=== PATIENT | male | born 1960 | race Caucasian/White ===

== ENCOUNTER 2016-07-14 10:53 | Emergency (ER) | END 2016-07-14 17:04 | disposition home or self-care (01) | DX: G40.909 Epilepsy, unspecified, not intractable, without status epilepticus (principal); I10 Essential (primary) hypertension; R40.2142 Coma scale, eyes open, spontaneous, at arrival to emergency department; R40.2252 Coma scale, best verbal response, oriented, at arrival to emergency department; R40.2362 Coma scale, best motor response, obeys commands, at arrival to emergency department; Z85.841 Personal history of malignant neoplasm of brain | CPT/HCPCS: 36415; 71010; 80053; 83690; 84484; 85025; 93005; 96374; 96375; J1953; J2405; J7030; Z7502; Z7610 ==

== ENCOUNTER 2016-07-30 10:28 | Inpatient (IN) | payer OTHER ==
[~2016-07-30] VITALS: Ht 162.6 cm; Wt 84.4 kg
[~2016-07-30 10:28] MED LIST: LEVE-5 PO
--- NOTE | 2016-07-30 10:39 | ERA ---
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 At 9:30 this morning he experienced acute onset of twisting of his lower lip, numbness of his right face and weakness of his left upper extremity. Symptoms lasted proximally 5 minutes and have resolved. He is back to baseline. Denies seizure. No headache or visual changes. No other focal weakness or numbness. No chest pain or palpitations. Denies shortness of breath or cough. No abdominal pain, nausea or vomiting. No fevers or chills. ROS All systems reviewed and are negative except as per history of present illness. Medications Home Meds Active Scripts Levetiracetam* (Keppra*) 500 Mg Tablet, 500 MG PO BID, #60 TAB Prov:ZEV MI MD 07/14/16 Reported Medications Simvastatin* (Zocor*) 20 Mg Tablet, 20 MG PO DAILY, #30 TAB 07/30/16 Lisinopril* (Lisinopril*) 10 Mg Tablet, 10 MG PO DAILY, #30 TAB 07/30/16 Allergies Allergies: Coded Allergies: Penicillins (Verified Allergy, Unknown, 07/30/16) Sulfa (Sulfonamide Antibiotics) (Verified Allergy, Unknown, 07/30/16) ampicillin (Verified Allergy, Unknown, 07/30/16) morphine (Verified Allergy, Unknown, 07/30/16) sulbactam (Verified Allergy, Unknown, 07/14/16) PMhx/Soc Reviewed in chart. As per HPI. History of Surgery: Yes (removal of brain tumor ) Anesthesia Reaction: No Hx Neurological Disorder: Yes (brain tumor, seizure) Hx Respiratory Disorders: No Hx Cardiac Disorders: Yes (htn, high cholesterol) Hx Psychiatric Problems: No Hx Miscellaneous Medical Probl: No Hx Alcohol Use: No Hx Substance Use: No Hx Tobacco Use: No Smoking Status: Former smoker (Quit 10 years ago) FmHx No stroke or cancer Physical Exam Vitals Vital Signs Date Time Temp Pulse Resp B/P Pulse Ox O2 Delivery O2 Flow Rate FiO2 07/30/16 13:47 60 18 132/84 98 Room Air 07/30/16 11:01 Nasal Cannula 2 07/30/16 10:38 98.1 97 18 127/79 98 Physical Exam Const: Alert and oriented. Moderate distress. Head: Atraumatic. Status post right temporal craniotomy Eyes: Normal Conjunctiva. Extraocular movements are intact. Pupils equal and reactive to light. ENT: Normal External Ears, Nose and Mouth. + gag reflex. Neck: Full range of motion carotids 2+ bilaterally without bruits. Nontender. Resp: Breath sounds are equal and Clear to auscultation bilaterally Cardio: Regular rate and rhythm, no murmurs Abd: Soft, non tender, non distended. Normal bowel sounds Skin: No petechiae or rashes Back: No midline or flank tenderness Ext: No cyanosis, or edema Neur: Awake and alert. Cranial nerves II through XII are grossly intact. Mild left upper extremity weakness but otherwise motor and sensory equal bilaterally. Psych: Normal Mood and Affect Result Diagram: 07/31/16 1005 07/31/16 1005 Results 24 hrs Laboratory Tests Test 07/30/16 10:42 07/30/16 11:00 Bedside Glucose 107mg/dL White Blood Count 5.210^3/ul Red Blood Count 4.6110^6/ul Hemoglobin 14.2g/dl Hematocrit 41.2% Mean Corpuscular Volume 89.4fl Mean Corpuscular Hemoglobin 30.8pg Mean Corpuscular Hemoglobin Concent 34.5g/dl Red Cell Distribution Width 12.8% Platelet Count 95949^3/UL Mean Platelet Volume 10.8fl Neutrophils % 58.7% Lymphocytes % 30.3% Monocytes % 8.7% Eosinophils % 1.7% Basophils % 0.4% Nucleated Red Blood Cells % 0.0/100WBC Neutrophils # 3.010^3/ul Lymphocytes # 1.610^3/ul Monocytes # 0.510^3/ul Eosinophils # 0.110^3/ul Basophils # 0.010^3/ul Nucleated Red Blood Cells # 0.010^3/ul Prothrombin Time 13.3Sec Prothrombin Time Ratio 1.0 INR International Normalized Ratio 1.01 Activated Partial Thromboplast Time 29.7Sec Sodium Level 142mmol/L Potassium Level 3.2mmol/L Chloride Level 108mmol/L Carbon Dioxide Level 21mmol/L Anion Gap 16 Blood Urea Nitrogen 14mg/dl Creatinine 0.97mg/dl Glucose Level 108mg/dl Calcium Level 8.4mg/dl Total Bilirubin 0.2mg/dl Direct Bilirubin 0.00mg/dl Indirect Bilirubin 0.2mg/dl Aspartate Amino Transf (AST/SGOT) 24IU/L Alanine Aminotransferase (ALT/SGPT) 35IU/L Alkaline Phosphatase 71IU/L Troponin I < 0.012ng/ml Total Protein 6.5g/dl Albumin 3.7g/dl Globulin 2.80g/dl Albumin/Globulin Ratio 1.32 EKG: TIME: 10:50. Sinus rhythm. Ventricular rate 65. Incomplete right bundle- branch block. Left ventricular hypertrophy. No acute ST segment elevation or depression. No ectopy. EP Interpretation: Abnormal EKG. IMAGING: PROCEDURE: XR Chest. CLINICAL INDICATION: Shortness of breath. TECHNIQUE: Single frontal chest x-ray. COMPARISON: 07/14/2016 FINDINGS: There is minimal right basilar atelectasis versus infiltrate. Otherwise, the lungs are clear. No focal opacification is seen. No pneumothorax or pleural effusion is seen. The cardiomediastinal silhouette is unremarkable. The osseous structures are grossly unremarkable. IMPRESSION: Minimal right basilar atelectasis versus infiltrate. Otherwise, unremarkable exam. RPTAT: JJ .Sandro Burciaga MD, MD Date Time Electronically viewed and signed by .Sandro Burciaga MD, MD on 07/30/2016 12:10 .A/ PROCEDURE: CT Head without. CLINICAL INDICATION: Possible stroke. TECHNIQUE: The study was performed utilizing a multi-slice, multidetector CT scanner. Direct spiral 1 mm axial sections were obtained through the head without the use of intravenous contrast material. 1 or more of the following dose reduction techniques were utilized: Automated exposure control, adjustment of the mA and/or kV according to patient's size, iterative reconstruction technique. Coronal and sagittal reformations were obtained. The images were reviewed on a PACS workstation. RADIATION DOSE: CTDIvol: 44.1 mGy DLP: 630.2 mGy-cm COMPARISON: CT head 06/11/2014 at consideration, MRI brain 06/11/2014, 2010 FINDINGS: There are postoperative changes from the compressive right craniectomy with cranioplasty in place. There is a well-circumscribed encephalomalacia involving the right anterior temporal lobe, right frontal operculum and anterior right frontal lobe with underlying gliosis in the white matter. There is subsequent ex vacuo enlargement of the frontal horn, body and temporal horn of the right lateral ventricle. There is no intracranial hemorrhage, extra- axial fluid collection, mass lesion, midline shift or hydrocephalus. There is a baseline mild prominence of the cerebral sulci, lateral and third ventricles. There is mild periventricular and subcortical white matter hypodensity involving the left cerebral hemisphere. The jenkins-white matter differentiation is preserved. The basal cisterns are patent. The midline structures are intact. The orbits, calvarium and extracranial soft tissues are normal in appearance. The visualized paranasal sinuses, mastoid air cells and middle ear cavities are normally aerated. IMPRESSION: 1. Redemonstration of postoperative changes from right sided decompressive craniectomy with cranioplasty in place. 2. Stable extensive encephalomalacia involving the right anterior temporal lobe , right frontal operculum and lateral right frontal lobe from remote prior right MCA distribution infarct. This is grossly stable in extent compared to the prior examinations, however if clinical concern for acute superimposed on chronic infarct MRI is recommended for further evaluation. 3. No intracranial hemorrhage, extra-axial fluid collection, mass lesion or hydrocephalous. The above findings were discussed with Patient's physician Huber Cleaning by telephone on 07/30/2016 11:25:55 AM. RPTAT: HGAS .Josiah Stovall MD, MD Date Time Electronically viewed and signed by .Josiah Stovall MD, on 07/30/2016 11: 32 .S/ PROCEDURE: MR Brain without contrast. CLINICAL INDICATION: Suspected stroke. TECHNIQUE: An MRI of the brain was performed without contrast utilizing the following sequences: Sagittal T1 weighted, sagittal FLAIR, axial T1, axial FLAIR, axial T2 weighted, axial diffusion weighted, axial ADC mapping. Images were reviewed on a PACS workstation. COMPARISON: CT head 07/30/2016, MRI 04/10/2015, 10/06/2010 FINDINGS: Diffusion weighted sequences demonstrate a 4 mm area of diffusion restriction involving the right basal ganglia (axial series image 13). There is redemonstration of postoperative changes from right-sided decompressive craniectomy with cranioplasty in place. There is redemonstration of extensive encephalomalacia involving the right anterior temporal lobe, right frontal operculum and lateral right frontal lobe compatible with remote prior right MCA distribution infarct. There is stable moderate encephalomalacia in the underlying white matter. There is stable ex vacuo enlargement of the frontal horn, body and temporal horn of the right lateral ventricle. There is mild prominence of the left lateral ventricle and left cerebral hemisphere sulci. There is a baseline of mild periventricular and subcortical white matter lesions involving the left cerebral hemisphere. There is no intracranial hemorrhage, extra-axial fluid collection, mass lesion, midline shift or hydrocephalous. The brainstem and cerebellum are normal in appearance. Normal flow voids are visible the proximal intracranial arteries and dural sinuses, indicating patency. The midline structures are intact. The susceptibility weighted images demonstrate multiple areas of hemosiderin involving the large right MCA distribution infarct. There are mild inflammatory changes of the bilateral ethmoid air cells. The mastoid air cells and middle ear cavities are normally aerated. The orbits, calvarium and extracranial soft tissues are normal in appearance. The cerebellopontine angles are normal. No evidence of internal acoustic canal or cerebellopontine angle mass. IMPRESSION: 1. Focal 4 mm acute lacunar infarct involving the right basal ganglia. 2. No intracranial hemorrhage, enhancing mass lesion or hydrocephalous. 3. Stable appearance of postoperative changes from decompressive right-sided craniectomy with associated cranioplasty. 4. Stable appearance of extensive encephalomalacia involving the right anterior temporal lobe, right facial operculum half lateral talus. Right MCA distribution infarct. The above findings were discussed with Patient's physician Huber Cleaning by telephone on 07/30/2016 2:00:50 PM. 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 Patient presents with acute onset of neurologic symptoms consistent with CVA versus TIA. No evidence of seizure or Bob's paralysis. Patient is not a candidate for TPA as low NIH stroke score, symptoms resolved and he is back to baseline. CT findings of previous craniotomy and stroke. MRI confirms an acute 4 mm acute right basal ganglia lacunar infarct. No bleed. Aspirin given. Blood pressure is well- controlled. No signs of meningitis or encephalitis hence lumbar puncture not indicated. Patient will be admitted to telemetry for neurological consultation, further evaluation and management. CALLS/CONSULTS: Time 14:00, Dr. Jaquez, Recommends telemetry admission. PATIENT CARE TRANSITIONED: Time: 14:00, Dr. Jaquez. CRITICAL CARE TIME: Due to the high probability of sudden clinically significant hemodynamic, cardiovascular and neurologic deterioration, this patient with acute onset of neurologic symptoms secondary to an acute CVA, but no indication for TPA, required multiple, frequent reevaluations of vital signs , neurologic status and response to therapy. Additional critical care time was spent in interpretation of relevant clinical data including labs, chest x-ray, CT scan, MRI, obtaining supplemental history from paramedics, review of medical records and consultation with the admitting physician. TOTAL CRITICAL CARE TIME: 35 minutes not including other separately reportable procedures. Departure Diagnosis: Primary Impression: Acute CVA (cerebrovascular accident) Additional Impressions: History of meningioma Seizure disorder History of CVA (cerebrovascular accident) History of craniotomy Condition: Serious HUBER CLEANING MD Jul 30, 2016 10:39 cardiorespiratory, and unstable neurologic status, while maintaining tight balance of fluid, respiratory, and cardiac interventions. Departure Diagnosis: Primary Impression: Acute CVA (cerebrovascular accident) Additional Impressions: History of meningioma Seizure disorder History of CVA (cerebrovascular accident) History of craniotomy Condition: Serious HUBER CLEANING MD Jul 30, 2016 10:39
[2016-07-30 11:16] LABS: ADD SCAN DIFF NO
[2016-07-30 11:27] LABS: ALBUMIN 3.7 g/dl (3.3-4.9); CHLORIDE 108 mmol/L (97-110)
[2016-07-30 11:28] LABS: POTASSIUM 3.2 mmol/L (3.5-5.1); SODIUM 142 mmol/L (135-144)
[2016-07-30 11:30] LABS: ALBUMIN/GLOBULIN RATIO 1.32; ANION GAP 16 (8-16); ASPARTATE AMINO TRANSFERASE 24 IU/L (15-46); BILIRUBIN,INDIRECT 0.2 mg/dl (0-1.1); BILIRUBIN,TOTAL 0.2 mg/dl (0.2-1.3); BLOOD UREA NITROGEN 14 mg/dl (7-20); CARBON DIOXIDE 21 mmol/L (21-31); CREATININE 0.97 mg/dl (0.61-1.24); INR 1.01; PROTIME 13.3 Sec (12.2-14.2); TOTAL PROTEIN 6.5 g/dl (6.1-8.1)
[2016-07-30 11:31] LABS: ALANINE AMINOTRANSFERASE 35 IU/L (13-69); ALKALINE PHOSPHATASE 71 IU/L (42-121); CALCIUM 8.4 mg/dl (8.4-10.2); GLUCOSE 108 mg/dl (70-220); PARTIAL THROMBOPLASTIN TIME 29.7 Sec (25.0-35.0)
[2016-07-30 11:32] LABS: BASOPHILS % 0.4 % (0.0-2.0); EOSINOPHILS # 0.1 10^3/ul (0.0-0.5); EOSINOPHILS % 1.7 % (0.0-7.0); HEMATOCRIT 41.2 % (42.0-52.0); HEMOGLOBIN 14.2 g/dl (14.0-18.0); LYMPHOCYTES # 1.6 10^3/ul (0.8-2.9); LYMPHOCYTES % 30.3 % (15.0-51.0); MEAN CORPUSCULAR HEMOGLOBIN 30.8 pg (29.0-33.0); MEAN CORPUSCULAR HGB CONC 34.5 g/dl (32.0-37.0); MEAN CORPUSCULAR VOLUME 89.4 fl (82.0-101.0); MEAN PLATELET VOLUME 10.8 fl (7.4-10.4); MONOCYTE # 0.5 10^3/ul (0.3-0.9); MONOCYTES % 8.7 % (0.0-11.0); NEUTROPHILS % 58.7 % (39.0-77.0); PLATELET COUNT 219 10^3/UL (140-415); RED BLOOD COUNT 4.61 10^6/ul (4.70-6.10); RED CELL DISTRIBUTION WIDTH 12.8 % (11.5-14.5); WHITE BLOOD COUNT 5.2 10^3/ul (4.8-10.8)
--- NOTE | 2016-07-30 11:32 | RADRPT ---
PROCEDURE: CT Head without. CLINICAL INDICATION: Possible stroke. TECHNIQUE: The study was performed utilizing a multi-slice, multidetector CT scanner. Direct spira l 1 mm axial sections were obtained through the head without the use of intravenous contrast materia l. 1 or more of the following dose reduction techniques were utilized: Automated exposure control, adjustment of the mA and/or kV according to patient's size, iterative reconstruction technique. Co kimberly and sagittal reformations were obtained. The images were reviewed on a PACS workstation. RADIATION DOSE: CTDIvol: 44.1 mGyDLP: 630.2 mGy-cm COMPARISON: CT head 06/11/2014 at consideration, MRI brain 06/11/2014, 10/06/2010 FINDINGS: There are postoperative changes from the compressive right craniectomy with cranioplasty in place. There is a well-circumscribed encephalomalacia involving the right anterior temporal lobe, right fro ntal operculum and anterior right frontal lobe with underlying gliosis in the white matter. There i s subsequent ex vacuo enlargement of the frontal horn, body and temporal horn of the right lateral v entricle. There is no intracranial hemorrhage, extra-axial fluid collection, mass lesion, midline s hift or hydrocephalus. There is a baseline mild prominence of the cerebral sulci, lateral and third ventricles. There is mild periventricular and subcortical white matter hypodensity involving the l eft cerebral hemisphere. The jenkins-white matter differentiation is preserved. The basal cisterns ar e patent. The midline structures are intact. The orbits, calvarium and extracranial soft tissues a re normal in appearance. The visualized paranasal sinuses, mastoid air cells and middle ear cavities are normally aerated. IMPRESSION: 1. Redemonstration of postoperative changes from right sided decompressive craniectomy with craniop lasty in place. 2. Stable extensive encephalomalacia involving the right anterior temporal lobe, right frontal oper culum and lateral right frontal lobe from remote prior right MCA distribution infarct. This is lorna sly stable in extent compared to the prior examinations, however if clinical concern for acute super imposed on chronic infarct MRI is recommended for further evaluation. 3. No intracranial hemorrhage, extra-axial fluid collection, mass lesion or hydrocephalous. The above findings were discussed with Patient's physician David Wooten by telephone on 07/31/19 17 11:25:55 AM. RPTAT: HGAS .Josiah Stovall MD, MD Date Time Electronically viewed and signed by .Josiah Stovall MD, MD on 07/30/2016 11:32 .S/
[2016-07-30 11:42] LABS: TROPONIN-I < 0.012 ng/ml (0.00-0.12)
[2016-07-30] MEDS ORDERED: LISI10TA2 PO (12:00)
[2016-07-30] MEDS ORDERED: SIMV20TA PO (12:00)
--- NOTE | 2016-07-30 12:10 | RADRPT ---
PROCEDURE: XR Chest. CLINICAL INDICATION: Shortness of breath. TECHNIQUE: Single frontal chest x-ray. COMPARISON: 07/14/2016 FINDINGS: There is minimal right basilar atelectasis versus infiltrate. Otherwise, the lungs are clear. No f ocal opacification is seen. No pneumothorax or pleural effusion is seen. The cardiomediastinal veronica houette is unremarkable. The osseous structures are grossly unremarkable. IMPRESSION: Minimal right basilar atelectasis versus infiltrate. Otherwise, unremarkable exam. RPTAT: JJ .Sandro Burciaga MD, MD Date Time Electronically viewed and signed by .Sandro Burciaga MD, on 07/30/2016 12:10 .A/
--- NOTE | 2016-07-30 14:01 | RADRPT ---
PROCEDURE: MR Brain without contrast. CLINICAL INDICATION: Suspected stroke. TECHNIQUE: An MRI of the brain was performed without contrast utilizing the following sequences: Sagittal T1 weighted, sagittal FLAIR, axial T1, axial FLAIR, axial T2 weighted, axial diffusion weig hted, axial ADC mapping. Images were reviewed on a PACS workstation. COMPARISON: CT head 07/30/2016, MRI 04/10/2015, 10/06/2010 FINDINGS: Diffusion weighted sequences demonstrate a 4 mm area of diffusion restriction involving the right ba sienna ganglia (axial series image 13). There is redemonstration of postoperative changes from right-s ided decompressive craniectomy with cranioplasty in place. There is redemonstration of extensive en cephalomalacia involving the right anterior temporal lobe, right frontal operculum and lateral right frontal lobe compatible with remote prior right MCA distribution infarct. There is stable moderate encephalomalacia in the underlying white matter. There is stable ex vacuo enlargement of the front al horn, body and temporal horn of the right lateral ventricle. There is mild prominence of the lef t lateral ventricle and left cerebral hemisphere sulci. There is a baseline of mild periventricular and subcortical white matter lesions involving the left cerebral hemisphere. There is no intracran ial hemorrhage, extra-axial fluid collection, mass lesion, midline shift or hydrocephalous. The brainstem and cerebellum are normal in appearance. Normal flow voids are visible the proximal intra cranial arteries and dural sinuses, indicating patency. The midline structures are intact. The susc eptibility weighted images demonstrate multiple areas of hemosiderin involving the large right MCA d istribution infarct. There are mild inflammatory changes of the bilateral ethmoid air cells. The mastoid air cells and m iddle ear cavities are normally aerated. The orbits, calvarium and extracranial soft tissues are no rmal in appearance. The cerebellopontine angles are normal. No evidence of internal acoustic canal or cerebellopontine angle mass. IMPRESSION: 1. Focal 4 mm acute lacunar infarct involving the right basal ganglia. 2. No intracranial hemorrhage, enhancing mass lesion or hydrocephalous. 3. Stable appearance of postoperative changes from decompressive right-sided craniectomy with assoc iated cranioplasty. 4. Stable appearance of extensive encephalomalacia involving the right anterior temporal lobe, righ t facial operculum half lateral talus. Right MCA distribution infarct. The above findings were discussed with Patient's physician David Wooten by telephone on 07/31/19 17 2:00:50 PM. RPTAT: HGAS .Josiah Stovall MD, Date Time Electronically viewed and signed by .Josiah Stovall MD, MD on 07/30/2016 14:01 .S/
[2016-07-30] MEDS ORDERED: ACETAMINOPHEN 325 MG TAB PO PRN ×2 (14:30→16:30)
[2016-07-30] MEDS ORDERED: ONDANSETRON 4 MG INJ IV PRN (14:30)
[2016-07-30] MEDS ORDERED: POTASSIUM CHLORIDE (SR) 20 MEQ TAB PO STA ×2 (14:40→16:03)
[2016-07-30] MEDS ORDERED: ASPIRIN 325 MG TAB PO ONE (15:00)
[2016-07-30 15:28] LABS: ADD UMIC NO; URINE BILIRUBIN (Dip) NEGATIVE (NEGATIVE); URINE BLOOD (Dip) NEGATIVE (NEGATIVE); URINE COLOR LT. YELLOW (YELLOW); URINE GLUCOSE (Dip) NEGATIVE (NEGATIVE); URINE KETONES (Dip) NEGATIVE (NEGATIVE); URINE LEUKOCYTE ESTERASE (Dip) NEGATIVE (NEGATIVE); URINE NITRITE (Dip) NEGATIVE (NEGATIVE); URINE TOTAL PROTEIN (Dip) NEGATIVE (NEGATIVE); URINE UROBILINOGEN (Dip) 0.2 E.U./dL (0.1-1.0)
[2016-07-30 16:04] LABS: BARBITURATES Negative (NEGATIVE); BENZODIAZEPINES Negative (NEGATIVE); CANNABINOIDS Negative (NEGATIVE); COCAINE Negative (NEGATIVE); OPIATES Negative (NEGATIVE)
[2016-07-30] MEDS ORDERED: DOCUSATE SODIUM 100 MG CAP PO PRN (16:30)
[2016-07-30] MEDS ORDERED: LORAZEPAM 0.5 MG TAB PO PRN (16:30)
[2016-07-30] MEDS ORDERED: ACETAMINOPHEN 650 MG SUPP PR PRN (16:30)
[2016-07-30] MEDS ORDERED: NACL 0.9% 3 ML SYG IV SCH (16:30)
[2016-07-30] MEDS ORDERED: HYDROCODONE/APAP (5/325) TAB PO PRN (16:30)
[2016-07-30] MEDS ORDERED: ONDANSETRON 4 MG TAB PO PRN (16:30)
--- NOTE | 2016-07-30 18:23 | HP ---
DATE OF ADMISSION: 07/30/2016 INSOLE ROUNDER: Neurologist. CHIEF COMPLAINT: Right upper extremity weakness and tingling in the right side of the face. HISTORY OF PRESENT ILLNESS: This is a 55-year-old gentleman with past medical history of hypertensi on, dyslipidemia, meningioma x2 with surgical removal and craniotomy from meningioma at [facility], history of CVA, questionable atrial fibrillation, who is homeless for the past 2 years, who presents with right-sided upper extremity weakness and facial tingling since this morning. The pat ient denies any change in visual acuity, diplopia, photophobia. Does complain of having headache. The CT of the brain upon evaluation in the ER, demonstrates redemonstration of postoperative changes with a right-sided decompressive craniotomy with cranioplasty in place. No intracranial hemorrhage , extra-axial collection, mass lesion or hydrocephalus. The patient continued to complain of having facial numbness. MRI of the brain was obtained which showed focal 4 mm acute lacunar infarct invol ving the right basal ganglia. No intracranial hemorrhage, enhancing mass lesion or hydrocephalus. The patient was treated with potassium chloride and aspirin in the course of the emergency room. Ne urology was consulted. At this time, patient denies any headache, dizziness, lightheadedness. No c hange in visual acuity, diplopia or photophobia. No neck pain, no restricted range of motion in upp er and lower extremities. No recent travel history. No sick contact. No trauma to his head or any other discomfort except what was stated above. PAST MEDICAL AND SURGICAL HISTORY: As above per HPI. MEDICATIONS: 1. Keppra 500 mg 2. Lexapro 10 mg 3. Simvastatin 20 mg. ALLERGIES: 1. PENICILLIN. 2. SULFA. 3. AMPICILLIN. 4. MORPHINE. 5. SULBACTAM. SOCIAL HISTORY: Positive for history of smoking, which is in remission for the past 10 years. No a lcohol, no illicit drugs at this time. REVIEW OF SYSTEMS: As above per HPI, otherwise 12 review of systems was found to be negative. PHYSICAL EXAMINATION: VITAL SIGNS: Temperature 98.1, pulse 60, blood pressure 132/85, oxygen saturation 98% in room air. GENERAL APPEARANCE: The patient is lying in bed comfortably without any distress. He is awake, dionisio rt, oriented. He is able to answer my questions properly. EYES AND ENT: Conjunctivae and lids are normal. Pupils are normal. Extraocular normal. Hearing g rossly normal. Lips, teeth and gums are normal. Oral mucosa is moist. NECK: Supple. Trachea is midline. No lymphadenopathy. RESPIRATORY: Effort is normal. Clear to auscultation bilaterally. CARDIOVASCULAR: Normal S1, S2. Regular rhythm and rate. No murmur, no bruits, no edema. Peripher al pulses, radial pulses palpable. Capillary refill is normal. CHEST: Normal expansion of thorax during inspiration. GASTROINTESTINAL: Abdomen is soft, nontender, not distended. Bowel sounds present. No guarding, n o rebound. GENITOURINARY: Deferred. MUSCULOSKELETAL: Upper and lower extremities within normal limits. Full range of motion. Strength 5/5 in both upper and lower extremities. NEUROLOGIC: Cranial nerves II through XII grossly intact. PSYCHIATRIC: Normal judgment and insight. He is awake, alert, oriented. LABORATORY DATA AND IMAGING: WBC 5.3, hemoglobin 14.3, hematocrit 41.2, platelets 219. Sodium 142, potassium 3.2, chloride 108, bicarbonate 21, BUN 16, creatinine 0.97, glucose 108. LFTs all within normal limits. Troponin negative. MRI of the brain as above per HPI. ASSESSMENT AND PLAN: 1. Acute cerebrovascular accident with a positive finding of focal 4 mm acute lacunar infarct invol ving the right basal ganglia with stable appearance of extensive encephalomalacia involving the righ t anterior and temporal lobe, right focal upper column lateral right MCA distribution infarct. Neurology has been consulted. We will obtain a carotid Doppler, 2D echocardiogram. The patient h as been started on aspirin. Continue statin. Continue to monitor blood pressure. 2. Essential hypertension, well controlled on medical management. 3. History of cerebrovascular accident as above. 4. History of seizure disorder. Continue Keppra. 5. Dyslipidemia. Continue statin. Follow up lipid panel in a.m. 6. Deep venous thrombosis prophylaxis, on Lovenox. 7. We will continue to monitor patient closely. Further recommendations, management and treatment as per clinical course. Dictated By: LEEROY MCCALL MD PN/NTS Conf#: [id number] DID#: [id number]
[2016-07-30] MEDS ORDERED: ATORVASTATIN 10 MG TAB PO SCH (21:00)
[2016-07-30] MEDS: LEVETIRACETAM 500 MG TAB PO SCH (21:07)
[2016-07-30 21:09] VITALS: TEMP 98.3
[2016-07-31] VITALS (13 sets, daily range): BP systolic 110–126; BP diastolic 66–76; PULSE 45–64; RESP 16–20; Ht 162.6 cm; Wt 84.4 kg
[2016-07-31] MEDS: PANTOPRAZOLE (EC) 40 MG TAB PO SCH (05:41)
[2016-07-31] MEDS: LEVETIRACETAM 500 MG TAB PO SCH ×2 (09:23→21:07)
[2016-07-31] MEDS: LISINOPRIL 10 MG TAB PO SCH (09:23)
[2016-07-31] MEDS: ENOXAPARIN 40 MG/0.4 ML SYG SC SCH (09:30)
[2016-07-31 10:22] LABS: ADD SCAN DIFF NO
[2016-07-31 10:25] LABS: BASOPHILS % 0.3 % (0.0-2.0); EOSINOPHILS # 0.1 10^3/ul (0.0-0.5); EOSINOPHILS % 1.2 % (0.0-7.0); HEMATOCRIT 44.8 % (42.0-52.0); LYMPHOCYTES # 1.6 10^3/ul (0.8-2.9); LYMPHOCYTES % 27.2 % (15.0-51.0); MEAN CORPUSCULAR HEMOGLOBIN 30.2 pg (29.0-33.0); MEAN CORPUSCULAR HGB CONC 33.5 g/dl (32.0-37.0); MEAN CORPUSCULAR VOLUME 90.3 fl (82.0-101.0); MEAN PLATELET VOLUME 10.5 fl (7.4-10.4); MONOCYTE # 0.4 10^3/ul (0.3-0.9); MONOCYTES % 7.2 % (0.0-11.0); NEUTROPHIL # 3.7 10^3/ul (1.6-7.5); NEUTROPHILS % 63.9 % (39.0-77.0); PLATELET COUNT 231 10^3/UL (140-415); RED BLOOD COUNT 4.96 10^6/ul (4.70-6.10); RED CELL DISTRIBUTION WIDTH 12.7 % (11.5-14.5); WHITE BLOOD COUNT 5.7 10^3/ul (4.8-10.8)
[2016-07-31 10:38] LABS: CREATININE 1.15 mg/dl (0.61-1.24)
[2016-07-31 10:39] LABS: CHOL/HDL RATIO 5.2 RATIO; MAGNESIUM 2.1 mg/dl (1.7-2.5)
--- NOTE | 2016-07-31 10:59 | CONS ---
Date/Time of Note Date/Time of Note DATE: 07/31/16 TIME: 10:53 Assessment/Plan Assessment/Plan Chief Complaint/Hosp Course 55 year old M with history of previous meningioma s/p resection on seizure ppx, previous CVA uncontrolled DM, HTN p/w right basal ganglia lacunar stroke. -continue AED for seizure ppx -ASA 81 mg daily -optimization of DM, maintain normotension -Lipid panel pending, goal LDL<70 may require higher dose of statin -ECHO -carotid duplex -social work to consult regarding housing situation Problems: Consultation Date/Type/Reason Admit Date/Time Jul 30, 2016 at 14:15 Date of Consultation: Jul 31, 2016 Type of Consultation: Neurology Reason for Consultation basal ganglia lacunar stroke Referring Provider: LEEROY MCCALL MD Hx of Present Illness 55 year old male with history of HTN, HLD, meningioma x2 with surgical removal requiring craniotomy with seizures, history of CVA undomiciled non-compliant with meds p/w LUE weakness and facial tingling since morning. MRI showed acute 4 mm lacunar infarct right basal ganglia. He reports symptoms have mostly improved, able to ambulate today well. Past Medical History Medical History: no pertinent history Social History Smoking Status: Never smoker Exam/Review of Systems Vital Signs Vitals Vital Signs Date Time Temp Pulse Resp B/P Pulse Ox O2 Delivery O2 Flow Rate FiO2 07/31/16 08:00 64 07/31/16 07:30 98.0 16 115/71 99 07/31/16 00:30 Room Air 07/30/16 11:01 2 Intake and Output 07/30/16 07/30/16 07/31/16 15:00 23:00 07:00 Intake Total 500 ml Balance 500 ml Exam Constitutional: alert, oriented Psych: no complaints Head: atraumatic, normocephalic Neurological: other (DARWIN, VFF, EOMI, left NLF flattening mild dysarthria, Motor exam: slight weakness 5-/5 and slight drift in left arm otherwise strength is 5/5 throughout sensory intact coordination no ataxia) Results Result Diagram: 07/31/16 1005 07/31/16 1005 Results 24 hrs Laboratory Tests Test 07/30/16 11:00 07/30/16 15:00 07/31/16 10:05 White Blood Count 5.2 # 5.7 Red Blood Count 4.61 L 4.96 Hemoglobin 14.2 15.0 Hematocrit 41.2 L 44.8 Mean Corpuscular Volume 89.4 90.3 Mean Corpuscular Hemoglobin 30.8 30.2 Mean Corpuscular Hemoglobin Concent 34.5 33.5 Red Cell Distribution Width 12.8 12.7 Platelet Count 219 231 Mean Platelet Volume 10.8 H 10.5 H Neutrophils % 58.7 63.9 Lymphocytes % 30.3 27.2 Monocytes % 8.7 7.2 Eosinophils % 1.7 1.2 Basophils % 0.4 0.3 Nucleated Red Blood Cells % 0.0 0.0 Neutrophils # 3.0 3.7 Lymphocytes # 1.6 1.6 Monocytes # 0.5 0.4 Eosinophils # 0.1 0.1 Basophils # 0.0 0.0 Nucleated Red Blood Cells # 0.0 0.0 Prothrombin Time 13.3 Prothrombin Time Ratio 1.0 INR International Normalized Ratio 1.01 Activated Partial Thromboplast Time 29.7 Sodium Level 142 140 Potassium Level 3.2 L 4.0 Chloride Level 108 107 Carbon Dioxide Level 21 Pending Anion Gap 16 Pending Blood Urea Nitrogen 14 Pending Creatinine 0.97 Pending Glucose Level 108 Pending Calcium Level 8.4 Pending Total Bilirubin 0.2 Direct Bilirubin 0.00 Indirect Bilirubin 0.2 Aspartate Amino Transf (AST/SGOT) 24 Alanine Aminotransferase (ALT/SGPT) 35 Alkaline Phosphatase 71 Troponin I < 0.012 Total Protein 6.5 Albumin 3.7 Globulin 2.80 Albumin/Globulin Ratio 1.32 Urine Color LT. YELLOW Urine Clarity CLEAR Urine pH 6.5 Urine Specific [place] <=1.005 L Urine Ketones NEGATIVE Urine Nitrite NEGATIVE Urine Bilirubin NEGATIVE Urine Urobilinogen 0.2 E.U./dL Urine Leukocyte Esterase NEGATIVE Urine Hemoglobin NEGATIVE Urine Glucose NEGATIVE Urine Total Protein NEGATIVE Urine Opiates Screen Negative Urine Barbiturates Negative Urine Amphetamines Screen Negative Urine Benzodiazepines Screen Negative Urine Cocaine Screen Negative Urine Cannabinoids Negative Magnesium Level Pending Triglycerides Level Pending Cholesterol Level Pending LDL Cholesterol, Calculated Pending HDL Cholesterol Pending Cholesterol/HDL Ratio Pending Thyroid Stimulating Hormone (TSH) Pending Medications Medications Current Medications Lorazepam (Ativan) 0.5 mg Q8H PRN PO ANXIETY; Start 07/30/16 at 16:30 Ondansetron HCl (Zofran Tab) 4 mg Q6H PRN PO NAUSEA AND/OR VOMITING; Start 07/30 at 16:30 Acetaminophen (Tylenol Tab) 650 mg Q6H PRN PO PAIN LEVEL 1-3 OR FEVER Last administered on 07/30/16 19:19; Admin Dose 650 MG; Start 07/30/16 at 16:30 Acetaminophen (Tylenol Supp) 650 mg Q6H PRN [place] PAIN LEVEL 1-3 OR FEVER; Start 07/30/16 at 16:30 Acetaminophen/ Hydrocodone Bitart ([place] (5/325)) 1 tab Q6H PRN PO PAIN LEVEL 4 -6; Start 07/30/16 at 16:30 Docusate Sodium (Colace) 100 mg Q12H PRN PO CONSTIPATION; Start 07/30/16 at 16: 30 Pantoprazole (Protonix Tab) 40 mg DAILY@06 PO Last administered on 07/31/16 05: 41; Admin Dose 40 MG; Start 07/31/16 at 06:00 Enoxaparin Sodium (Lovenox) 40 mg DAILY SC Last administered on 07/31/16 09:30 ; Admin Dose 40 MG; Start 07/31/16 at 09:00 Levetiracetam (Keppra) 500 mg BID PO Last administered on 07/31/16 09:23; Admin Dose 500 MG; Start 07/30/16 at 21:00 Lisinopril (Zestril) 10 mg DAILY PO Last administered on 07/31/16 09:23; Admin Dose 10 MG; Start 07/31/16 at 09:00 Atorvastatin Calcium (Lipitor) 10 mg DAILY@21 PO Last administered on 07/30/16 21:07; Admin Dose 10 MG; Start 07/30/16 at 21:00 SUMA LOWE MD Jul 31, 2016 10:59
[2016-07-31 13:33] LABS: THYROID STIMULATING HORMONE 0.366 MIU/L (0.465-4.680)
--- NOTE | 2016-07-31 15:09 | RADRPT ---
PROCEDURE: US Carotids. CLINICAL INDICATION: bruit , evaluate for carotid stenosis, basal ganglia stroke TECHNIQUE: Multiple sonographic of the carotid bifurcation region and vertebral arteries were obta ined utilizing jenkins scale, duplex and color-flow imaging. The images were reviewed on a PACS worksta tion. COMPARISON: No prior studies are available for comparison. FINDINGS: Evaluation of the right carotid bifurcation region reveals mild calcific atherosclerotic disease. Evaluation of the left carotid bifurcation region reveals mild calcific atherosclerotic disease. There is antegrade flow within the vertebral arteries bilaterally. RIGHT CAROTID MEASUREMENTS: Common Carotid Viedmu91.8 (cm/sec) Internal Carotid Artery - veiupaxm76.3 (cm/sec) Internal Carotid Artery - mid41.2 (cm/sec) Internal Carotid Artery - ngioiw09.2 (cm/sec) Internal Carotid/Common Carotid0.94 LEFT CAROTID MEASUREMENTS: Common Carotid Dlikab92.5 (cm/sec) Internal Carotid Artery - mdwlshim29.1 (cm/sec) Internal Carotid Artery - mid44.2 (cm/sec) Internal Carotid Artery - tvqpoe42.4 (cm/sec) Internal Carotid/Common Carotid0.63 RPTAT: AA IMPRESSION: No evidence for hemodynamically significant stenosis in the bilateral internal carotid arteries - va lidated velocity measurements with angiographic measurements, velocity criteria are extrapolated fro m diameter data as defined by the Society of Radiologists in Ultrasound Consensus Conference Radiolo gy 2003; 229;340-346. This study does indirectly reference the measurement of the distal ICA diamet er as the denominator for stenosis measurement. Normal antegrade flow in the vertebral arteries bilaterally. .Geovanni Dugan MD, Date Time Electronically viewed and signed by .Geovanni Dugan MD, MD on 07/31/2016 15:08 .S/
--- NOTE | 2016-07-31 17:31 | PN ---
DATE: 07/31/2016 SUBJECTIVE DATA: Denies any complaints. OBJECTIVE DATA: VITAL SIGNS: Temperature 98.0, pulse rate 50, respiratory rate 16, blood pressure 112/68, oxygen saturation 98% on room air. GENERAL: This is a well-built, well-nourished male lying in bed in no apparent distress. HEENT: Head normocephalic and atraumatic. Eyes: Anicteric sclerae. Conjunctivae clear. ENT: Nasal septum is midline. Oral mucosa is moist. NECK: Supple. No JVD noticed. RESPIRATORY: Bilaterally clear to auscultation. No adventitious breath sounds. No use of accessory muscles of respiration. CARDIAC: Regular rate and rhythm. No murmurs heard. ABDOMEN: Soft, nontender and nondistended. Bowel sounds positive in all 4 quadrants. GENITOURINARY: Deferred. EXTREMITIES: No cyanosis, no clubbing, no edema. Peripheral pulses palpable. NEUROLOGIC: The patient is awake, alert and oriented. SKIN: Left nasolabial fold flattening with mild dysarthria. Normal skin turgor. No skin rashes. LABORATORY AND DIAGNOSTIC DATA: Hemoglobin 15.0, hematocrit 44.8, platelet count 231. Sodium 140, potassium 4.0, chloride 107, carbon dioxide 25, anion gap 13, BUN 15, creatinine 1.15, glucose 109, calcium 9.0, hemoglobin A1c 5.5, [id number], total cholesterol 172, LDL 119, AST of 33. ASSESSMENT AND PLAN: 1. Acute lacunar infarct involving the right basal ganglia. Continue aspirin and statins. Will increase the dose of statins for the goal LDL of less than 70. Seen and evaluated by neurology. Continue physical therapy. 2. Dyslipidemia. Continue statins. Advised a low cholesterol diet. 3. Essential hypertension. Continue antihypertensives. Blood pressure well controlled. 4. Seizure disorder. Continue Keppra. 5. Fluid, electrolytes and nutrition. Low cholesterol diet. 6. Deep venous thrombosis prophylaxis. Subcutaneous Lovenox. 7. Gastrointestinal prophylaxis. Proton pump inhibitors. PLAN: Continue current management. Will obtain a 2D echocardiogram, since this was not ordered. The patient is homeless. A socially responsible investment adviser is working with the patient for help with placement. The case was discussed with Dr. Liao. CARISSA LIAO MD, AM/HENRY Conf#: [id number] DID#: [id number] MTDD
[2016-07-31] MEDS: ATORVASTATIN 40 MG TAB PO SCH (21:07)
--- NOTE | 2016-07-31 21:40 | RADRPT ---
Echocardiogram Report Patient Name: SANTA MURO Gender: Male Date: 1960 Study Date: 31-Jul-2016 Customer Acquisition Manager: Tono Arredondo [facility] Location: [id number] Ref. Physician: LEEROY MCCALL Quality: Good Procedures: Transthoracic echocardiogram with complete 2D, M-Mode, and doppler examination. Indications: Cerebrovascular Accident. 2D/M Mode Doppler Measurement Value Normal Ranges Measurement Value Normal Ranges LVIDd 2D 4.3 3.5 - 5.6 cm HENRY Vmax 2.1 cm2 LVIDs 2D 2.3 2.1 - 4.1 cm AV Peak Zaid 1.3 m/sec FS 2D 45.7 % AV Peak PG 7.0 mmHg LVPWd 2D 1.2 0.6 - 1.1 cm LVOT Peak Zaid 0.8 m/sec IVSd 2D 1.2 0.6 - 1.1 cm LVOT Peak PG 2.0 mmHg IVS/LVPW 2D 1.0 MV E Peak Zaid 0.8 m/sec AoR Diam 2D 2.5 2.0 - 3.7 cm MV A Peak Zaid 0.6 m/sec LA/Ao 2D 1 0 - 1 MV E/A 1.4 EDV 2D 80.1 cm3 MV Decel Time 363 msec ESV 2D 12.8 cm3 MV E/A 1.4 LA Dimen 2D 2.9 2.3 - 4.0 cm MR Peak PG 5.0 mmHg LVOT Diam 2.1 cm MR Peak Zaid 1.1 m/sec LVOT Area 3.5 cm2 TR Peak Zaid 1.3 m/sec TR Peak PG 6.0 mmHg RVSP 9.0 mmHg Findings Left Ventricle: Lower limits of normal systolic function. Normal left ventricular cavity size. Mild concentric left ventricular hypertrophy. Ejection fraction is visually estimated at 50 %. Right Ventricle: Normal right ventricular size. Normal right ventricular systolic function. Left Atrium: The left atrium is normal in size. Right Atrium: The right atrium is normal in size. Mitral Valve: Normal appearance and function of the mitral valve with trace physiologic regurgitation. Aortic Valve: Normal appearance of the aortic valve. No significant aortic stenosis or insufficiency. Tricuspid Valve: Normal appearance of the tricuspid valve. Estimated peak PA systolic pressure 9 mmHg. There is trace tricuspid regurgitation. Pulmonic Valve: Normal pulmonic valve appearance. Pericardium: Normal pericardium with no significant pericardial effusion. Aorta: Normal aortic root. IVC: Normal size and normal respiratory collapse consistent with normal right atrial pressure. Conclusions 1.Lower limits of normal systolic function. Normal left ventricular cavity size. Mild concentric left ventricular hypertrophy. Ejection fraction is visually estimated at 50 %. 2.Normal appearance and function of the mitral valve with trace physiologic regurgitation. 3.Normal appearance of the tricuspid valve. Estimated peak PA systolic pressure 9 mmHg. There is trace tricuspid regurgitation. Electronically Signed By: Dominic Gregorio 31-Jul-2016 21:39:40 -0700 Patient Name: SANTA MURO Study Date: 31-Jul-2016 [id number]
[2016-08-01] VITALS (13 sets, daily range): BP systolic 97–126; BP diastolic 62–79; PULSE 52–80; RESP 16–20
[2016-08-01] MEDS: PANTOPRAZOLE (EC) 40 MG TAB PO SCH (05:39)
[2016-08-01] MEDS: LISINOPRIL 10 MG TAB PO SCH (09:00)
[2016-08-01] MEDS: ENOXAPARIN 40 MG/0.4 ML SYG SC SCH (09:00)
[2016-08-01] MEDS: ASPIRIN (EC) 81 MG TAB PO SCH (09:02)
[2016-08-01] MEDS: LEVETIRACETAM 500 MG TAB PO SCH ×2 (09:02→21:16)
--- NOTE | 2016-08-01 16:02 | PN ---
Date/Time of Note Date/Time of Note DATE: 08/01/16 TIME: 15:56 Assessment/Plan VTE Prophylaxis VTE Prophylaxis Intervention: LMWH Lines/Catheters [facility] Saline Lock Assessment/Plan Assessment/Plan 1. Acute lacunar infarct involving the right basal ganglia with left sided weakness. unremarkable carotid us and echo, Continue aspirin and statins. Continue physical therapy. 2. Dyslipidemia. Continue statins. Advised low cholesterol diet. 3. Essential hypertension. Continue antihypertensives. Blood pressure well controlled. 4. Seizure disorder. Continue Keppra. 5. Deep venous thrombosis prophylaxis. Subcutaneous Lovenox. 6. Homeless Subjective 24 Hr Interval Summary Free Text/Dictation left sided weakness, more on left arm Exam/Review of Systems Vital Signs Vitals Vital Signs Date Time Temp Pulse Resp B/P Pulse Ox O2 Delivery O2 Flow Rate FiO2 08/01/16 15:27 98.1 56 18 111/68 96 08/01/16 08:00 Room Air 07/30/16 11:01 2 Intake and Output 07/31/16 07/31/16 08/01/16 15:00 23:00 07:00 Intake Total 850 ml 500 ml Balance 850 ml 500 ml Exam Constitutional: alert, oriented, well developed Psych: nl mood/affect, no complaints Head: atraumatic, normocephalic Eyes: EOMI, PERRL, nl conjunctiva, nl lids ENMT: nl external ears & nose, nl lips & teeth, nl nasal mucosa & septum Neck: supple Respiratory: clear to auscultation, normal air movement, No congested cough, No crackles/rales, No diminished breath sounds, No intercostal retraction, No labored breathing, No other, No respirations, No tactile fremitus, No wheezing Cardiovascular: nl pulses, regular rate and rhythm, No S3, No S4, No bruits, No diastolic murmur, No edema, No gallop, No irregular rhythm, No jugular venous distention (JVD), No murmurs/extra sounds, No other, No rub, No systolic murmur Gastrointestinal: nl liver, spleen, non-tender, soft, No ascites, No bowel sounds, No distended, No firm, No hepatomegaly, No mass , No other, No rebound or guarding, No splenomegaly, No surgical scars, No tender Musculoskeletal: nl extremities to inspection Extremities: normal pulses, No calf tenderness, No clubbing, No cyanosis, No edema, No other, No palpable cord, No pitting pedal edema, No tenderness Neurological: PUBLIC POLICY ANALYST II-XII intact, nl mental status, nl speech, other (LUE and LLE 07/30) Results Result Diagram: 07/31/16 1005 07/31/16 1005 Medications Medications Current Medications Lorazepam (Ativan) 0.5 mg Q8H PRN PO ANXIETY; Start 07/30/16 at 16:30 Ondansetron HCl (Zofran Tab) 4 mg Q6H PRN PO NAUSEA AND/OR VOMITING; Start 07/30 at 16:30 Acetaminophen (Tylenol Tab) 650 mg Q6H PRN PO PAIN LEVEL 1-3 OR FEVER Last administered on 07/30/16 19:19; Admin Dose 650 MG; Start 07/30/16 at 16:30 Acetaminophen (Tylenol Supp) 650 mg Q6H PRN [place] PAIN LEVEL 1-3 OR FEVER; Start 07/30/16 at 16:30 Acetaminophen/ Hydrocodone Bitart ([place] (5/325)) 1 tab Q6H PRN PO PAIN LEVEL 4 -6; Start 07/30/16 at 16:30 Docusate Sodium (Colace) 100 mg Q12H PRN PO CONSTIPATION; Start 07/30/16 at 16: 30 Pantoprazole (Protonix Tab) 40 mg DAILY@06 PO Last administered on 08/01/16 05: 39; Admin Dose 40 MG; Start 07/31/16 at 06:00 Enoxaparin Sodium (Lovenox) 40 mg DAILY SC Last administered on 08/01/16 09:00 ; Admin Dose 40 MG; Start 07/31/16 at 09:00 Levetiracetam (Keppra) 500 mg BID PO Last administered on 08/01/16 09:02; Admin Dose 500 MG; Start 07/30/16 at 21:00 Lisinopril (Zestril) 10 mg DAILY PO Last administered on 07/31/16 09:23; Admin Dose 10 MG; Start 07/31/16 at 09:00 Aspirin (Halfprin) 81 mg DAILY PO Last administered on 08/01/16 09:02; Admin Dose 81 MG; Start 08/01/16 at 09:00 Atorvastatin Calcium (Lipitor) 40 mg HS PO Last administered on 07/31/16t 21:07 ; Admin Dose 40 MG; Start 07/31/16 at 21:00 STAN ONEAL MD Aug 01, 2016 16:02
[2016-08-01] MEDS: ATORVASTATIN 40 MG TAB PO SCH (21:16)
[2016-08-02] VITALS (8 sets, daily range): BP systolic 108–118; BP diastolic 58–75; PULSE 52–61; RESP 16–18
[2016-08-02] MEDS: PANTOPRAZOLE (EC) 40 MG TAB PO SCH (05:52)
[2016-08-02] MEDS: ASPIRIN (EC) 81 MG TAB PO SCH (08:49)
[2016-08-02] MEDS: LISINOPRIL 10 MG TAB PO SCH (08:49)
[2016-08-02] MEDS: LEVETIRACETAM 500 MG TAB PO SCH (08:49)
[2016-08-02] MEDS: ENOXAPARIN 40 MG/0.4 ML SYG SC SCH (08:51)
--- NOTE | 2016-08-02 11:18 | PN ---
Date/Time of Note Date/Time of Note DATE: 08/02/16 TIME: 11:16 Assessment/Plan VTE Prophylaxis VTE Prophylaxis Intervention: ambulation Lines/Catheters IV [facility] (from [facility] Saline Lock Assessment/Plan Chief Complaint/Hosp Course Assessment/Plan 1. Acute lacunar infarct involving the right basal ganglia with left sided weakness. unremarkable carotid us and echo, Continue aspirin and statins. Ambulating independently 2. Dyslipidemia. Continue statins. Advised low cholesterol diet. 3. Essential hypertension. Continue antihypertensives. Blood pressure well controlled. 4. Seizure disorder. Continue Keppra. 5. Deep venous thrombosis prophylaxis. Subcutaneous Lovenox. 6. Homeless patient wishes to return to his previous living conditions [facility]. Discharge today Problems: Subjective 24 Hr Interval Summary Free Text/Dictation Patient comfortable this morning Ambulating around the unit Exam/Review of Systems Vital Signs Vitals Vital Signs Date Time Temp Pulse Resp B/P Pulse Ox O2 Delivery O2 Flow Rate FiO2 08/02/16 08:29 52 08/02/16 07:51 98.0 18 110/69 97 08/01/16 08:00 Room Air 07/30/16 11:01 2 Intake and Output 08/01/16 08/01/16 08/02/16 15:00 23:00 07:00 Intake Total 900 ml 500 ml Balance 900 ml 500 ml Exam GENERAL: Well-nourished well-developed gentleman comfortable at rest VITAL SIGNS: per chart NECK: Supple. No JVD or lymphadenopathy. CARDIAC EXAM: S1, S2. No added sounds or murmurs. CHEST: clear bilaterally, No added sounds, rales or wheezes ABDOMEN: Soft, nontender. No guarding or rebound. EXTREMITIES: No cyanosis, clubbing or edema. NEUROLOGIC: Generalized weakness. No focal deficits. Results Result Diagram: 07/31/16 1005 07/31/16 1005 Medications Medications Current Medications Lorazepam (Ativan) 0.5 mg Q8H PRN PO ANXIETY; Start 07/30/16 at 16:30 Ondansetron HCl (Zofran Tab) 4 mg Q6H PRN PO NAUSEA AND/OR VOMITING; Start 07/30 at 16:30 Acetaminophen (Tylenol Tab) 650 mg Q6H PRN PO PAIN LEVEL 1-3 OR FEVER Last administered on 07/30/16t 19:19; Admin Dose 650 MG; Start 07/30/16 at 16:30 Acetaminophen (Tylenol Supp) 650 mg Q6H PRN [place] PAIN LEVEL 1-3 OR FEVER; Start 07/30/16 at 16:30 Acetaminophen/ Hydrocodone Bitart ([place] (5/325)) 1 tab Q6H PRN PO PAIN LEVEL 4 -6; Start 07/30/16 at 16:30 Docusate Sodium (Colace) 100 mg Q12H PRN PO CONSTIPATION; Start 07/30/16 at 16: 30 Pantoprazole (Protonix Tab) 40 mg DAILY@06 PO Last administered on 08/02/16 05: 52; Admin Dose 40 MG; Start 07/31/16 at 06:00 Enoxaparin Sodium (Lovenox) 40 mg DAILY SC Last administered on 08/02/16 08:51 ; Admin Dose 40 MG; Start 07/31/16 at 09:00 Levetiracetam (Keppra) 500 mg BID PO Last administered on 08/02/16 08:49; Admin Dose 500 MG; Start 07/30/16 at 21:00 Lisinopril (Zestril) 10 mg DAILY PO Last administered on 08/02/16 08:49; Admin Dose 10 MG; Start 07/31/16 at 09:00 Aspirin (Halfprin) 81 mg DAILY PO Last administered on 08/02/16 08:49; Admin Dose 81 MG; Start 08/01/16 at 09:00 Atorvastatin Calcium (Lipitor) 40 mg HS PO Last administered on 08/01/16 21:16 ; Admin Dose 40 MG; Start 07/31/16 at 21:00 HCAPO AGUILAR MD, [facility] Aug 02, 2016 11:18
--- NOTE | 2016-08-02 11:23 | PDOCDIS ---
Discharge Instructions DIAGNOSIS Discharge Diagnosis: ischemic stroke CONDITION Patient Condition: Good HOME CARE INSTRUCTIONS: Diet Instructions: RegularSpecial Diet: low fat/chol ACTIVITY: Activity Restrictions: No Restrictions FOLLOW UP/APPOINTMENTS Appointments Follow-up with primary care physician 2 weeks CHAPO AGUILAR MD, [facility] Aug 02, 2016 11:23
[2016-08-02] MEDS ORDERED: ASPI-664 PO (11:25)
[2016-08-02] MEDS ORDERED: ATOR40TA68 PO (11:26)
--- NOTE | 2016-08-02 11:53 | DS ---
DATE OF ADMISSION: 07/30/2016 DATE OF DISCHARGE: 08/02/2016 HOSPITAL COURSE: This is a 55-year-old homeless gentleman who presented with generalized weakness, right upper extremity tingling and in the right face on 07/30/2016. He has a history of CVA, mening ioma with craniotomy, possible atrial fibrillation. He has been homeless for the past 2 years. Fou nd on admission to have a new lacunar infarct on CVA. The patient placed on aspirin, continues Kepp ra, statin and lisinopril for hypertension. He has declined placement in a intermediate facility , wishes to return to his prior living conditions. In the hospital, he is ambulating independently, eating without evidence of aspiration and has improving focal deficits. DISCHARGE DIAGNOSES: 1. Acute lacunar infarct involving right basal ganglia. 2. History of meningioma, status post surgical resection. 3. Essential hypertension. 4. Seizure disorder. DISCHARGE CONDITION: Stable. ACTIVITY: As tolerated. DIET: 2 g sodium. Dictated By: CHAPO DENIS/HENRY Conf#: [id number] DID#: [id number]
== END 2016-08-02 15:29 | disposition home or self-care (01) | DRG 65 ==
LOC: E/R 10:28 → MS4 14:15
PROVIDERS: ADMIT Family Medicine; ATTEND Family Medicine
DX: I63.9 Cerebral infarction, unspecified (principal); G81.94 Hemiplegia, unspecified affecting left nondominant side; I10 Essential (primary) hypertension; G40.909 Epilepsy, unspecified, not intractable, without status epilepticus; E78.5 Hyperlipidemia, unspecified; Z59.0 Homelessness
CPT/HCPCS: 36415; 70450; 70551; 71010; 80048; 80053; 80061; 80307; 81003; 82962; 83036; 83735; 84443; 84484; 85025; 85610; 85730; 93005; 93306; 93880; 97162; 97166; J1650